=== PATIENT | male | born 1980 | race African-American/Black ===

== ENCOUNTER 2018-08-05 13:21 | Emergency (ER) | payer MEDICAID ==
[~2018-08-05] VITALS: Ht 180.3 cm; Wt 85.7 kg
--- NOTE | 2018-08-05 13:25 | NUR ---
ED Nurse Note: pt was brought in to ER by ambulance due to hearing voices to harm himself. pt aao x2 and skin clean and intact. per pt, he heard voice telling him to harm himself at the train [place] and he called 911. VSS with slightly tachycardia which is 110 per minute at this moment. pt denied suicidal idea and reported that he knows the voice is not real. pt follows command and calm.
--- NOTE | 2018-08-05 13:27 | NUR ---
ED Nurse Note: Marcela from poison control called and recommended to check Depakote, ASA, Tylenol and BMP level every 2 hours. JARRED Fontaine was informed.
[2018-08-05 13:30] VITALS: BP 110/78
--- NOTE | 2018-08-05 13:35 | Emergency Room Report ---
History of Present Illness General Chief Complaint: Overdose Source: Patient, EMS Present Illness HPI 38-year-old male presents to the emergency department complaining of suicide attempt by overdosing on Depakote. 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 PT. reports plan to take all his meds. Patient states that he is normally prescribed Depakote and Zyprexa however he has been out of his Zyprexa for over a few weeks. Patient reports he is having auditory hallucinations which are telling him to hurt himself. Patient denies previous suicide attempts but he does report previous psychiatric hospitalizations. Patient denies illicit drug use other than taking estimated 78 [place] as daily. Patient reports that he has had opiate withdraws in the past which consisted of upset stomach. Patient states that he did co-ingest an unknown amount of Ch[place] as today with the Depakote he states that he took approximately 5 pills of the 500 mg Depakote tablets. Reports some palpitations he denies dizziness, nausea, vomiting, fatigue or shortness of breath. Other than history of TBI he denies other significant past medical history. Denies alcohol use he states he has not taken any Tylenol or aspirin. Denies abdominal pain or tenderness at this time. Allergies: Coded Allergies: No Known Allergies (Unverified , 08/05/18) Patient History Past Medical History: see triage record Past Surgical History: none Pertinent Family History: none Reviewed Nursing Documentation: PMH: Agreed; PSxH: Agreed Nursing Documentation-PMH Past Medical History: No History, Except For History Of Psychiatric Problem: Yes - schizophrenic bipolar Review of Systems All Other Systems: negative except mentioned in HPI Physical Exam Vital Signs Date Time Temp Pulse Resp B/P (MAP) Pulse Ox O2 Delivery O2 Flow Rate FiO2 08/05/18 13:04 99.1 102 20 142/88 98 Nasal Cannula Sp02 EP Interpretation: reviewed, normal General Appearance: no apparent distress, alert, GCS 15, non-toxic Head: normocephalic, atraumatic Eyes: bilateral eye normal inspection, bilateral eye PERRL ENT: hearing grossly normal, normal voice Neck: full range of motion Respiratory: chest non-tender, lungs clear, normal breath sounds, no wheezing, speaking full sentences Cardiovascular #1: regular rate, rhythm, no edema Gastrointestinal: normal bowel sounds, non tender, soft, non-distended, no guarding Musculoskeletal: back normal, gait/station normal, normal range of motion, non- tender Neurologic: alert, oriented x3, responsive, motor strength/tone normal, sensory intact, speech normal, other - no decrease in gross motor movements. no SHOE TURNER decline noted on initial exam. , grossly normal Psychiatric: judgement/insight normal, other - flattened affect, answering questions appropriately and providing sufficient detail. Skin: normal color, no rash, warm/dry, well hydrated Lymphatic: no adenopathy Medical Decision Making PA Attestation Dr. Whitman is my supervising Physician whom patient management has been discussed with. Diagnostic Impression: Primary Impression: Drug overdose Qualified Codes: T50.902A - Poisoning by unspecified drugs, medicaments and biological substances, intentional self-harm, initial encounter ER Course 38-year-old male presents to the emergency department complaining of suicide attempt by overdosing on Depakote. 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 PT. reports plan to take all his meds. Patient states that he is normally prescribed Depakote and Zyprexa however he has been out of his Zyprexa for over a few weeks. Patient reports he is having auditory hallucinations which are telling him to hurt himself. Patient denies previous suicide attempts but he does report previous psychiatric hospitalizations. Patient denies illicit drug use other than taking estimated 78 [place] as daily. Patient reports that he has had opiate withdraws in the past which consisted of upset stomach. Patient states that he did co-ingest an unknown amount of [place] as today with the Depakote he states that he took approximately 5 pills of the 500 mg Depakote tablets. Reports some palpitations he denies dizziness, nausea, vomiting, fatigue or shortness of breath. Other than history of TBI he denies other significant past medical history. Denies alcohol use he states he has not taken any Tylenol or aspirin. Denies abdominal pain or tenderness at this time. Pt has flat affect. non-aggressive, normal though process, and normal memory. Ddx considered but are not limited to OD, SI/HI, psychosis, UTI, intoxication Vital signs: are WNL, pt. is afebrile H&PE are most consistent with behavioral/mental health issue-- OD attempt ORDERS: -CBC, CMP: Unremarkable, 2-hour repeat was unremarkable WNL as well -UA: negative for infection/ unremarkable see results attached. -UDS: Negative -Salicylates and Acetaminophen: WNL , repeat continues to be WNL -Serum ETOH - No evidence of acute intoxication -Ammonia Level : 43, repeat was 22 Poison control ( Amelia) recommended observation with repeat basic labs and Tylenol level every 2 hours. -Labs do not appear to be trending upward they are all within normal limits or trending downward. Patient has remained alert and oriented 2 of his ED stay no evidence of impending SHOE TURNER depression or airway compromises. ED INTERVENTIONS: - None required at this time . --will consider starting back on Zyprexa once labs come back and if they are normal. DISPOSITION: patient is medically cleared and will be under ED observation awaiting psychiatric evaluation for final disposition. Labs Test 08/05/18 14:00 08/05/18 15:50 White Blood Count 8.5 K/UL (4.8-10.8) Red Blood Count 4.91 M/UL (4.70-6.10) Hemoglobin 15.1 G/DL (14.2-18.0) Hematocrit 44.2 % (42.0-52.0) Mean Corpuscular Volume 90 FL (80-99) Mean Corpuscular Hemoglobin 30.8 PG (27.0-31.0) Mean Corpuscular Hemoglobin Concent 34.2 G/DL (32.0-36.0) Red Cell Distribution Width 11.2 % (11.6-14.8) Platelet Count 184 K/UL (150-450) Mean Platelet Volume 8.1 FL (6.5-10.1) Neutrophils (%) (Auto) 73.5 % (45.0-75.0) Lymphocytes (%) (Auto) 19.9 % (20.0-45.0) Monocytes (%) (Auto) 5.2 % (1.0-10.0) Eosinophils (%) (Auto) 0.2 % (0.0-3.0) Basophils (%) (Auto) 1.1 % (0.0-2.0) Urine Color Pale yellow Urine Appearance Clear Urine pH 8 (4.5-8.0) Urine Specific [place] 1.010 (1.005-1.035) Urine Protein Negative (NEGATIVE) Urine Glucose (UA) Negative (NEGATIVE) Urine Ketones 1+ (NEGATIVE) Urine Blood Negative (NEGATIVE) Urine Nitrite Negative (NEGATIVE) Urine Bilirubin Negative (NEGATIVE) Urine Urobilinogen Normal MG/DL (0.0-1.0) Urine Leukocyte Esterase Negative (NEGATIVE) Sodium Level 139 MMOL/L (136-145) 140 MMOL/L (136-145) Potassium Level 4.7 MMOL/L (3.5-5.1) 3.9 MMOL/L (3.5-5.1) Chloride Level 101 MMOL/L (98-107) 100 MMOL/L (98-107) Carbon Dioxide Level 26 MMOL/L (21-32) 26 MMOL/L (21-32) Anion Gap 12 mmol/L (5-15) Blood Urea Nitrogen 15 mg/dL (7-18) 15 mg/dL (7-18) Creatinine 1.0 MG/DL (0.55-1.30) 1.1 MG/DL (0.55-1.30) Estimat Glomerular Filtration Rate > 60 mL/min (>60) > 60 mL/min (>60) Glucose Level 90 MG/DL (74-106) 143 MG/DL (74-106) Calcium Level 9.8 MG/DL (8.5-10.1) 9.9 MG/DL (8.5-10.1) Total Bilirubin 0.5 MG/DL (0.2-1.0) 0.4 MG/DL (0.2-1.0) Aspartate Amino Transf (AST/SGOT) 35 U/L (15-37) 30 U/L (15-37) Alanine Aminotransferase (ALT/SGPT) 59 U/L (12-78) 58 U/L (12-78) Alkaline Phosphatase 64 U/L (46-116) 69 U/L (46-116) Ammonia 43 umol/L (11-32) 22 umol/L (11-32) Total Protein 8.0 G/DL (6.4-8.2) 8.2 G/DL (6.4-8.2) Albumin 4.0 G/DL (3.4-5.0) 4.0 G/DL (3.4-5.0) Globulin 4.0 g/dL 4.2 g/dL Albumin/Globulin Ratio 1.0 (1.0-2.7) 1.0 (1.0-2.7) Salicylates Level 2.2 ug/mL (2.8-20) Urine Opiates Screen Negative (NEGATIVE) Acetaminophen Level < 2 MCG/ML (10-30) < 2 MCG/ML (10-30) Urine Barbiturates Screen Negative (NEGATIVE) Valproic Acid (Depakene) Level 94 MCG/ML (50-100) 93 MCG/ML (50-100) Phencyclidine (PCP) Screen Negative (NEGATIVE) Urine Amphetamines Screen Negative (NEGATIVE) Urine Benzodiazepines Screen Negative (NEGATIVE) Urine Cocaine Screen Negative (NEGATIVE) Urine Marijuana (THC) Screen Negative (NEGATIVE) Serum Alcohol < 3 mg/dL Thyroid Stimulating Hormone (TSH) 0.882 uiU/mL (0.358-3.740) Last Vital Signs Date Time Temp Pulse Resp B/P (MAP) Pulse Ox O2 Delivery O2 Flow Rate FiO2 08/05/18 13:04 99.1 102 20 142/88 98 Nasal Cannula Minal Quinones Aug 05, 2018 13:35
--- NOTE | 2018-08-05 13:45 | NUR ---
ED Nurse Note: Sitter request made.
--- NOTE | 2018-08-05 13:50 | NUR ---
ED Nurse Note: Received verbal order from ERPA that pt is ok to eat and drink. sandwich and juice provided.
[2018-08-05 14:27] LABS: BASOPHILS % (AUTO) 1.1 % (0.0-2.0); EOSINOPHILS % (AUTO) 0.2 % (0.0-3.0); HEMATOCRIT 44.2 % (42.0-52.0); HEMOGLOBIN 15.1 G/DL (14.2-18.0); LYMPHOCYTES % (AUTO) 19.9 % (20.0-45.0); MEAN CORPUSCULAR VOLUME 90 FL (80-99); MONOCYTES % (AUTO) 5.2 % (1.0-10.0); NEUTROPHILS % (AUTO) 73.5 % (45.0-75.0); PLATELET COUNT 184 K/UL (150-450); RED BLOOD COUNT 4.91 M/UL (4.70-6.10); RED CELL DISTRIBUTION WIDTH 11.2 % (11.6-14.8); WHITE BLOOD COUNT 8.5 K/UL (4.8-10.8)
[2018-08-05 14:37] LABS: ANION GAP 12 mmol/L (5-15); BLOOD UREA NITROGEN 15 mg/dL (7-18); CALCIUM 9.8 MG/DL (8.5-10.1); CARBON DIOXIDE 26 MMOL/L (21-32); CHLORIDE 101 MMOL/L (98-107); POTASSIUM 4.7 MMOL/L (3.5-5.1); SODIUM 139 MMOL/L (136-145)
[2018-08-05 14:39] LABS: AMMONIA 43 umol/L (11-32)
[2018-08-05 14:41] LABS: ALANINE AMINOTRANSFERASE 59 U/L (12-78); ALKALINE PHOSPHATASE 64 U/L (46-116); ASPARTATE AMINO TRANSFERASE 35 U/L (15-37); BILIRUBIN,TOTAL 0.5 MG/DL (0.2-1.0)
[2018-08-05 15:20] LABS: APPEARANCE,URINE CLEAR; BILIRUBIN, URINE NEGATIVE (NEGATIVE); COLOR,URINE PALE YELLOW; GLUCOSE, URINE (UA) NEGATIVE (NEGATIVE); KETONES,URINE 1+ (NEGATIVE); LEUKOCYTE ESTERASE ,URINE NEGATIVE (NEGATIVE); NITRITE,URINE NEGATIVE (NEGATIVE); PH,URINE 8 (4.5-8.0); PROTEIN,URINE NEGATIVE (NEGATIVE); UROBILINOGEN,URINE NORMAL MG/DL (0.0-1.0)
--- NOTE | 2018-08-05 15:27 | NUR ---
ED Nurse Note: pt agreed with voluntarily admitted to psychiatric hospital. pt admitted that he hears voice to cut himself. sitter at bedside currently.
--- NOTE | 2018-08-05 15:31 | NUR ---
ED Nurse Note: received verbal order from ERPA to repeat the previous lab.
--- NOTE | 2018-08-05 15:32 | NUR ---
ED Nurse Note: Reported to ERPA about pt HR is going up and stays between 100/hr to 120/hr. ERPA will go thru the lab and will order ivf if it is necessary.
--- NOTE | 2018-08-05 15:35 | NUR ---
ED Nurse Note: labs drawn and sent to lab.
[2018-08-05 15:49] VITALS: BP 134/77
[2018-08-05 16:22] LABS: BLOOD UREA NITROGEN 15 mg/dL (7-18); CALCIUM 9.9 MG/DL (8.5-10.1); CARBON DIOXIDE 26 MMOL/L (21-32); CREATININE 1.1 MG/DL (0.55-1.30); POTASSIUM 3.9 MMOL/L (3.5-5.1); SODIUM 140 MMOL/L (136-145)
--- NOTE | 2018-08-05 16:30 | NUR ---
ED Nurse Note: pt started rocking in bed and agitated without being comative. reported to ERPA and received Ativan order and administrated.
[2018-08-05 16:35] LABS: ALANINE AMINOTRANSFERASE 58 U/L (12-78); ALKALINE PHOSPHATASE 69 U/L (46-116); ASPARTATE AMINO TRANSFERASE 30 U/L (15-37); BILIRUBIN,TOTAL 0.4 MG/DL (0.2-1.0)
[2018-08-05 16:54] LABS: CHLORIDE 100 MMOL/L (98-107)
[2018-08-05] MEDS ORDERED: LORazepam Inj 2mg/ml 1ml IV ONE (17:00)
--- NOTE | 2018-08-05 17:32 | NUR ---
ED Nurse Note: report given to HEDY Rodgers.
[2018-08-05 17:38] VITALS: BP 136/81
--- NOTE | 2018-08-05 17:41 | NUR ---
ED Nurse Note: IV HL was removed.
--- NOTE | 2018-08-05 17:47 | NUR ---
ED Nurse Note: pt eating sandwich with juice.
[2018-08-05 18:00] VITALS: BP 146/71
--- NOTE | 2018-08-05 18:00 | NUR ---
ER DISCHARGE NOTE: Patient is cleared to be transferred to [facility] per ERPA, pt is aox2-3, on room air, with stable vital signs. pt HR went up to 130/min earlier but after 1 L of bolus it went down to 104/min currently. pt id band and iv site removed without complications. pt was transferred by 2 EMS in stable condition. EMS took all belongings.
== END 2018-08-05 18:00 ==
LOC: EDBD 13:21 → EMR 13:52
DX: T42.6X2A Poisoning by other antiepileptic and sedative-hypnotic drugs, intentional self-harm, initial encounter (principal); F20.9 Schizophrenia, unspecified; F31.9 Bipolar disorder, unspecified; X58.XXXA Exposure to other specified factors, initial encounter; Y92.9 Unspecified place or not applicable
CPT/HCPCS: 36415; 80053; 80164; 80307; 80329; 81003; 82140; 84443; 85025; 96361; 96374; 99284

== ENCOUNTER 2018-08-31 14:44 | Emergency (ER) | payer MEDICAID ==
[~2018-08-31] VITALS: Ht 180.3 cm; Wt 88.5 kg
[2018-08-31] MEDS ORDERED: DEPAKOTE250 MG PO (14:50)
[2018-08-31] MEDS ORDERED: ZYPREXA2.5 MG ORAL (14:50)
--- NOTE | 2018-08-31 14:52 | NUR ---
ED Nurse Note: patient brought in by ambulance RA [id number] because patient walked to [employer] and stated that he has intention to throw himself to the train. patient was recently discharged from a psych hospital this morning for the same symptom per EMS. Patient is alert awake, is on 5150 hold by [employer]. patient has hx of sz and bipolar
--- NOTE | 2018-08-31 15:00 | NUR ---
ED Nurse Note: patient's belongings placed in locker #2
[2018-08-31] MEDS ORDERED: Depakote 500mg tab ORAL ONE (15:30)
--- NOTE | 2018-08-31 15:41 | NUR ---
ED Nurse Note: labs/urine sent down to lab
[2018-08-31 15:55] LABS: BASOPHILS % (AUTO) 1.1 % (0.0-2.0); EOSINOPHILS % (AUTO) 2.2 % (0.0-3.0); HEMATOCRIT 41.6 % (42.0-52.0); HEMOGLOBIN 14.8 G/DL (14.2-18.0); MEAN CORPUSCULAR VOLUME 86 FL (80-99); MONOCYTES % (AUTO) 8.3 % (1.0-10.0); NEUTROPHILS % (AUTO) 63.5 % (45.0-75.0); PLATELET COUNT 153 K/UL (150-450); RED BLOOD COUNT 4.81 M/UL (4.70-6.10); RED CELL DISTRIBUTION WIDTH 11.2 % (11.6-14.8); WHITE BLOOD COUNT 7.6 K/UL (4.8-10.8)
[2018-08-31 16:04] LABS: ANION GAP 7 mmol/L (5-15); BLOOD UREA NITROGEN 16 mg/dL (7-18); CALCIUM 9.6 MG/DL (8.5-10.1); CARBON DIOXIDE 29 MMOL/L (21-32); CHLORIDE 104 MMOL/L (98-107); CREATININE 1.1 MG/DL (0.55-1.30); POTASSIUM 4.2 MMOL/L (3.5-5.1); SODIUM 140 MMOL/L (136-145)
[2018-08-31 16:08] LABS: ALANINE AMINOTRANSFERASE 64 U/L (12-78); ALBUMIN 3.6 G/DL (3.4-5.0); ALBUMIN/GLOBULIN RATIO 0.9 (1.0-2.7); ALKALINE PHOSPHATASE 63 U/L (46-116); ASPARTATE AMINO TRANSFERASE 30 U/L (15-37); BILIRUBIN,TOTAL 0.2 MG/DL (0.2-1.0)
--- NOTE | 2018-08-31 16:12 | Emergency Room Report ---
History of Present Illness General Chief Complaint: Suicidal Source: Patient, EMS, [employer] Present Illness HPI 38-year-old male presents ED for evaluation. Patient brought in by [employer] for evaluation. Patient is being placed on 5150 hold. Patient states he is suicidal and wants to hurt himself. Wants to jump in front of trains tracks. States that he was discharged just 2 hours ago from another facility. Does not know the name of it. States he was told to go to [facility]. Denies hearing voices. States that he supposed be taking Depakote and Zyprexa. Does not have medication upon discharge. Denies drug use or alcohol use. No other aggravating relieving factors. Denies any other associated symptoms Allergies: Coded Allergies: No Known Allergies (Unverified , 08/05/18) Patient History Past Medical History: psych hx Past Surgical History: none Pertinent Family History: none Social History: Denies: smoking, alcohol use, drug use Immunizations: UTD Reviewed Nursing Documentation: PMH: Agreed; PSxH: Agreed Nursing Documentation-PMH Past Medical History: No History, Except For History Of Psychiatric Problem: Yes - bipolar Hx Seizures: Yes Review of Systems All Other Systems: negative except mentioned in HPI Physical Exam Vital Signs Date Time Temp Pulse Resp B/P (MAP) Pulse Ox O2 Delivery O2 Flow Rate FiO2 08/31/18 14:48 98.4 99 20 143/81 100 Room Air Sp02 EP Interpretation: reviewed, normal General Appearance: no apparent distress, alert, GCS 15, non-toxic Head: normocephalic, atraumatic Eyes: bilateral eye normal inspection, bilateral eye PERRL ENT: hearing grossly normal, normal pharynx, no angioedema, normal voice Neck: full range of motion, supple/symm/no masses Respiratory: chest non-tender, lungs clear, normal breath sounds, speaking full sentences Cardiovascular #1: regular rate, rhythm, no edema Cardiovascular #2: 2+ carotid (R), 2+ carotid (L), 2+ radial (R), 2+ radial (L) , 2+ dorsalis pedis (R), 2+ dorsalis pedis (L) Gastrointestinal: normal bowel sounds, non tender, soft, non-distended, no guarding, no rebound Rectal: deferred Genitourinary: normal inspection, no CVA tenderness Musculoskeletal: back normal, gait/station normal, normal range of motion, non- tender Neurologic: alert, oriented x3, responsive, motor strength/tone normal, sensory intact, speech normal Psychiatric: judgement/insight normal, no delusions, depressed affect Reflexes: 3+ bicep (R), 3+ bicep (L), 3+ tricep (R), 3+ tricep (L), 3+ knee (R) , 3+ knee (L) Skin: normal color, no rash, warm/dry, well hydrated Lymphatic: no adenopathy Medical Decision Making ER Course Hospital Course 38-year-old male presents to ED for suicidal ideation. brought in by [employer] Differential diagnoses include: Major depressive disorder, unspecified psychosis , EtOH abuse, drug abuse Clinical course Patient placed on stretcher. On one to one observation. After initial history and physical I ordered labs, U. tox given zyprexa and depakote in ED Labs-electrolytes normal, aspirin/Tylenol levels normal, EtOH level normal, depakote level subtherapeutic, Utox negative We determined that patient was discharged from [facility]. Recalled that facility. States he was discharged about 2 hours prior to arrival here. States that they cannot take patient back as he is on a 5150 hold. Patient is medically cleared and pending psychiatric evaluation. i. I feel this is a highly complex case requiring extensive working including EKG/Rhythm strip, Xray/CT/US, Blood/urine lab work, repeat exams while in ED, and administration of strong opiates/narcotics for pain control, admission to hospital or close patient follow up. Labs Test 08/31/18 15:35 White Blood Count 7.6 K/UL (4.8-10.8) Red Blood Count 4.81 M/UL (4.70-6.10) Hemoglobin 14.8 G/DL (14.2-18.0) Hematocrit 41.6 % (42.0-52.0) Mean Corpuscular Volume 86 FL (80-99) Mean Corpuscular Hemoglobin 30.7 PG (27.0-31.0) Mean Corpuscular Hemoglobin Concent 35.5 G/DL (32.0-36.0) Red Cell Distribution Width 11.2 % (11.6-14.8) Platelet Count 153 K/UL (150-450) Mean Platelet Volume 8.1 FL (6.5-10.1) Neutrophils (%) (Auto) 63.5 % (45.0-75.0) Lymphocytes (%) (Auto) 25.0 % (20.0-45.0) Monocytes (%) (Auto) 8.3 % (1.0-10.0) Eosinophils (%) (Auto) 2.2 % (0.0-3.0) Basophils (%) (Auto) 1.1 % (0.0-2.0) Sodium Level 140 MMOL/L (136-145) Potassium Level 4.2 MMOL/L (3.5-5.1) Chloride Level 104 MMOL/L (98-107) Carbon Dioxide Level 29 MMOL/L (21-32) Anion Gap 7 mmol/L (5-15) Blood Urea Nitrogen 16 mg/dL (7-18) Creatinine 1.1 MG/DL (0.55-1.30) Estimat Glomerular Filtration Rate > 60 mL/min (>60) Glucose Level 82 MG/DL (74-106) Calcium Level 9.6 MG/DL (8.5-10.1) Total Bilirubin 0.2 MG/DL (0.2-1.0) Aspartate Amino Transf (AST/SGOT) 30 U/L (15-37) Alanine Aminotransferase (ALT/SGPT) 64 U/L (12-78) Alkaline Phosphatase 63 U/L (46-116) Total Protein 7.6 G/DL (6.4-8.2) Albumin 3.6 G/DL (3.4-5.0) Globulin 4.0 g/dL Albumin/Globulin Ratio 0.9 (1.0-2.7) Salicylates Level 1.9 ug/mL (2.8-20) Urine Opiates Screen Negative (NEGATIVE) Acetaminophen Level < 2 MCG/ML (10-30) Urine Barbiturates Screen Negative (NEGATIVE) Valproic Acid (Depakene) Level 42 MCG/ML (50-100) Phencyclidine (PCP) Screen Negative (NEGATIVE) Urine Amphetamines Screen Negative (NEGATIVE) Urine Benzodiazepines Screen Negative (NEGATIVE) Urine Cocaine Screen Negative (NEGATIVE) Urine Marijuana (THC) Screen Negative (NEGATIVE) Serum Alcohol < 3 mg/dL Last Vital Signs Date Time Temp Pulse Resp B/P (MAP) Pulse Ox O2 Delivery O2 Flow Rate FiO2 4/15/19 14:48 98.4 99 20 143/81 100 Room Air Status: improved Disposition: XFER TO PSYCH HOSP/UNIT Condition: Serious Referrals: NOT CHOSEN IPA/,REFERRING (PCP) Ghanshyam Arrieta MD Aug 31, 2018 16:12
[2018-08-31 16:35] VITALS: BP 138/72
--- NOTE | 2018-08-31 17:30 | NUR ---
ED Nurse Note: dinner tray/water provided to the patient. patient is resting comfortably in bed
[2018-08-31 18:29] VITALS: BP 131/72
--- NOTE | 2018-08-31 19:11 | NUR ---
HAND-OFF: Report given to Bhakti KNOTT. patient is in stable condition
--- NOTE | 2018-08-31 21:14 | NUR ---
ER Nurse Note: Pt asleep, no signs of distress. Pt is calm. All needs have been met; all safety measures met. Sitter at bedside; will continue to montior.
[2018-08-31 22:26] VITALS: BP 136/74
--- NOTE | 2018-09-01 01:16 | NUR ---
ER Nurse Note: Pt continue to be asleep. No signs of distress, no complains of pain. All needs met; urinal at bedside, snacks provided, blackets given on request. Bed in lowest position, all safety measures met; will continue to montior with sitter at bedside.
--- NOTE | 2018-09-01 02:54 | NUR ---
ER Nurse Note: Spoke with Cameron at [facility]. Pt was cleared for placement. Will call at 0315 to give report to RN.
[2018-09-01 02:57] VITALS: BP 107/72
--- NOTE | 2018-09-01 03:25 | NUR ---
ER Nurse Note: Report given to HEDY Loaiza in [facility]. Dr. Ferrari is the admitting doctor; no room number given. Charge nurse and pharmacy technician per diem aware. Awaiting transport. Pt a&ox4, VSS, no signs of distress. Pt calm and cooparative. [place] and juice was given. Pt skin intact. Awaiting transport. Sitter at bedside; will continue to select specialty hospital.
[2018-09-01 05:24] VITALS: BP 107/72
--- NOTE | 2018-09-01 05:27 | NUR ---
ER Nurse Note: Pt seen, treated, medially cleared for discharge by ERMD. Report given to HEDY Loaiza for continuity of care. Pt calm, coopearative, no sign of distress. All belongings given to EMS[facility]. Fadia notified that is in route.
== END 2018-09-01 05:30 ==
LOC: EDUNIT# 14:44 → EDBD 14:44 → EMR 15:30
DX: R45.851 Suicidal ideations (principal); F31.9 Bipolar disorder, unspecified; G40.909 Epilepsy, unspecified, not intractable, without status epilepticus
CPT/HCPCS: 36415; 80053; 80164; 80307; 80329; 85025; 99285